=== PATIENT | male | born 1970 | race Caucasian/White ===

== ENCOUNTER 2016-05-06 08:09 | Day surgery (SDC) | payer OTHER ==
[2016-05-03 11:05] LABS: BASOPHILS 0.6 %; BASOPHILS ABSOLUTE 0.04 10/3/uL (0.0-0.16); EOSINOPHILS 2.5 %; EOSINOPHILS ABSOLUTE 0.16 10/3/uL (0.0-0.53); HEMATOCRIT 42.6 % (40.0-51.0); IMMATURE GRANULOCYTES 0.5 %; IMMATURE GRANULOCYTES ABSOLUTE 0.03 10/3/uL (0.0-0.11); LYMPHOCYTES 34.6 %; LYMPHOCYTES ABSOLUTE 2.18 10/3/uL (0.67-4.30); MANUAL DIFF NO %; MEAN CORPUS HGB CONC 32.9 g/dL (32.0-36.0); MEAN CORPUSCULAR HEMOGLOB 30.2 pg (26.0-34.0); MEAN PLATELET VOLUME 11.3 fL (9.2-13.0); MONOCYTES 8.4 %; MONOCYTES ABSOLUTE 0.53 10/3/uL (0.21-1.20); NEUTROPHILS 53.4 %; NEUTROPHILS ABSOLUTE 3.36 10/3/uL (2.02-8.40); PLATELET COUNT 189 10/3/uL (150-400); RBC DISTRIBUTION WIDTH 12.9 % (12.0-16.0); RED CELL COUNT 4.63 10/6/uL (4.7-6.1); WHITE BLOOD CELLS 6.3 10/3/uL (4.5-10.5)
[2016-05-03 11:19] LABS: A/G RATIO 1.1 (0.7-1.9); ALBUMIN 3.6 G/DL (3.5-5.0); ALKALINE PHOSPHATASE 70 U/L (45-117); BUN (BLOOD UREA NITROGEN) 13 MG/DL (6-23); CALCIUM, SERUM 8.7 MG/DL (8.5-10.4); CHLORIDE, SERUM 103 MMOL/L (96-112); CO2 (CARBON DIOXIDE) 31 MMOL/L (24-34); CREATININE 1.47 MG/DL (0.70-1.30); GFR AFRICAN AMERICAN 64 ML/MIN (>=60); GFR NON AFRICAN AMERICAN 56 ML/MIN (>=60); GLOBULIN 3.2 G/DL (2.5-4.1); GLUCOSE, SERUM 96 MG/DL (60-99); POTASSIUM, SERUM 4.4 MMOL/L (3.5-5.3); SGOT(AST) 12 U/L (5-40); SGPT(ALT) 33 U/L (5-65); SODIUM, SERUM 141 MMOL/L (135-148); TOTAL BILIRUBIN 0.7 MG/DL (0-1.2); TOTAL PROTEIN 6.8 G/DL (6.0-8.5)
--- NOTE | ~2016-05-06 | PREOPHP ---
PreOp History and Physical [address] [address] NAME: LULA GALAN : 66 STATUS : REG [facility]#: [id number] AGE: 46 ADM/REG DATE : 05/06/16 MR#: [id number] REPORT SERV DATE: 05/06/16 DICTATED BY: AFSHIN SOTELO III DATE: 03/29/16 REPORT STATUS : Draft TRANSCRIBED BY: MODNam DATE: 03/29/16 HISTORY OF PRESENT ILLNESS: This 46-year-old male comes to the operating room for open repair of a symptomatic right inguinal hernia. The patient has a large right inguinal hernia which has been present for several years. The hernia is becoming larger with time and symptomatic in terms of local pain and discomfort. The patient has had no nausea, vomiting, or obstructive symptoms. He comes to the operating room now for open repair of this hernia. PAST MEDICAL HISTORY: 1. Hypertension. 2. Hyperlipidemia. 3. Gastroesophageal reflux disease. 4. Anxiety. 5. Depression. PAST SURGICAL HISTORY: Status post tonsillectomy. FAMILY HISTORY: Positive for hypertension and diabetes. MEDICATIONS: Duloxetine; olmesartan; and esomeprazole. SOCIAL HISTORY: No history of tobacco or alcohol use. REVIEW OF SYSTEMS: The patient complains of reflux, indigestion, anxiety, and depression. A 14-point review of systems otherwise unremarkable. PHYSICAL EXAMINATION: OBJECTIVE PHYSICAL EXAM: GENERAL: This is a large obese male, in no acute distress. He is alert and oriented x3. VITAL SIGNS: Blood pressure 127/83, pulse 87, and temperature 97.9. HEENT: Unremarkable. Cranial nerves 2 through 12 were normal. LUNGS: Clear. CARDIAC: Normal. ABDOMEN: Soft and nontender. : In the right groin is a moderate size inguinal hernia. This is reducible. The left groin is normal. EXTREMITIES: Normal. ASSESSMENT: 1. A 46-year-old male with symptomatic enlarging right inguinal hernia. 2. Hypertension. 3. Obesity. 4. Hyperlipidemia. 5. Gastroesophageal reflux disease. PreOp History and Physical [address] [address] NAME: LULA GALAN : 66 STATUS : REG [facility] [place] PAT#: [id number] AGE: 46 ADM/REG DATE : 05/06/16 MR#: [id number] REPORT SERV DATE: 05/06/16 DICTATED BY: AFSHIN SOTELO III DATE: 03/29/16 REPORT STATUS : Draft TRANSCRIBED BY: TRACE DATE: 03/29/16 6. Anxiety. 7. Depression. PLAN: The patient comes to the operating room now for open right inguinal hernia repair. This procedure, the risks, benefits, and alternatives, including not limited to the risk for bleeding, infection, pain, swelling, scarring, deformity of the area, seroma formation, hematoma formation, recurrence of the hernia, nerve injury, chronic paresthesia or pain in the thigh, scrotum, or groin, chronic neuralgia or neuroma, and unforeseen complications including deep venous thrombosis, pulmonary embolus, myocardial infarction, stroke, pneumonia, and , have been explained to the patient prior to surgery. The expected length of recovery has been explained. All his questions have been answered. He understands the risks and agrees to the surgery as planned. EMELY/TRACE Afshin Sotelo III, M.D. / [id number]
--- NOTE | ~2016-05-06 | OP ---
Record Of Operation [facility] [address] [place]. [address] NAME: LULA GALAN : 66 STATUS : REG [facility] [place] PAT#: [id number] AGE: 46 ADM/REG DATE : 05/06/16 MR#: [id number] REPORT SERV DATE: 05/06/16 DICTATED BY: AFSHIN SOTELO III DATE: 05/06/16 REPORT STATUS : Draft TRANSCRIBED BY: MODL DATE: 05/06/16 DATE OF PROCEDURE: 05/06/2016 PREOPERATIVE DIAGNOSIS: Symptomatic recurrent right inguinal hernia. POSTOPERATIVE DIAGNOSES: Symptomatic recurrent right inguinal hernia, direct right inguinal hernia. PROCEDURE: Open Ariane tension-free repair of the right inguinal hernia with Prolene mesh. SURGEON: Afshin Sotelo M.D. ANESTHESIA: General with intubation. COMPLICATIONS: None. ESTIMATED BLOOD LOSS: Less than 5 mL. SPECIMENS: None. DRAINS: None. LAP AND SPONGE COUNT: Correct x3. BRIEF HISTORY: This 46-year-old male presented with a symptomatic right inguinal hernia. It was felt that open right inguinal hernia repair was indicated. This procedure, the risks, benefits, and alternatives, including but not limited to the risk for bleeding, infection, pain, swelling, scarring, deformity to the area, seroma formation, hematoma formation, recurrence of the hernia, nerve injury, chronic paresthesia, or pain in the thigh, scrotum, or groin, chronic neuralgia or neuroma, and unforeseen complications including deep venous thrombosis, pulmonary embolus, myocardial infarction, stroke, pneumonia, and were explained to the patient prior to the surgery. The expected length of recovery was explained. The patient's questions were answered. He understood the risks and agreed to the surgery as planned. DESCRIPTION OF PROCEDURE: After being properly identified and after discussing the risks and benefits of surgery with him again in the preoperative area, and after identifying the hernia with his help in the preoperative area, the patient was taken to the operating room and placed in the supine position on the operating room table. General anesthesia was administered, and he was intubated without difficulty. The abdomen and groins were prepped and draped sterilely in the usual fashion. After an appropriate "time-out" per JCAHO standards, a small oblique incision was made in the right groin from the pubic tubercle medially towards the anterior and superior iliac spine laterally. The incision was continued through the subcutaneous tissue. Hemostasis was controlled with the cautery. The external oblique fascia was identified. This fascia was opened along the direction of its Record Of Operation [address] [place]. [address] NAME: LULA GALAN : 66 STATUS : REG [facility] [place] PAT#: [id number] AGE: 46 ADM/REG DATE : 05/06/16 MR#: [id number] REPORT SERV DATE: 05/06/16 DICTATED BY: AFSHIN SOTELO III DATE: 05/06/16 REPORT STATUS : Draft TRANSCRIBED BY: TRACE DATE: 05/06/16 fibers, so as to open the external inguinal ring. Using sharp dissection, the ilioinguinal and genitofemoral nerves were identified. These were carefully isolated and protected to one side. There was noted to be a large direct hernia protruding through the floor of the canal. Using sharp dissection, the spermatic cord and its contents were mobilized from the floor of the canal and a Udall drain was placed beneath it. The spermatic cord was skeletonized. There was no indirect component to the hernia. Using sharp dissection, the direct hernia was dissected free from its surrounding tissues. It was reduced back into the abdominal cavity. The fascial defect in the floor of the canal was then closed with interrupted 3-0 silk sutures which were placed between the shelving edge of the inguinal ligament laterally and the internal oblique and transversalis fascia medially. This resulted in good closure of the defect with minimal tension. A Prolene mesh was then selected and cut to the appropriate size for the floor of the canal. A slit was made in the mesh laterally to incorporate the spermatic cord. The mesh was then secured to the floor of the canal with a running 2-0 Prolene suture, which was placed between the edge of the mesh and shelving edge of the inguinal ligament laterally and the edge of the mesh and the internal oblique and transversalis fascia medially. Upon completion of this, the mesh lay nicely on the floor of the canal, it was not twisted or kinked in any way. It was not under any tension. A small finger could be placed through the internal ring so that the spermatic vessels had not been unduly tightened or narrowed. Hemostasis was assured. The external oblique fascia was closed with a running 2-0 silk suture. The subcutaneous tissue was closed with a running 3-0 chromic suture. The skin was closed with a running subcuticular 4-0 Monocryl stitch. Incision was injected with 0.5% Marcaine. Dressings were applied. Anesthesia was reversed. The patient was taken to the recovery room in stable condition. He tolerated the procedure well. His family was informed the results of the surgery. The patient will be discharged when stable and comfortable and able to void and ambulate. His family was advised that he should keep his wound clean and dry for 48 hours that he should not drive for three to four days after surgery while using narcotics that he should resume his usual medications and he should not perform any heavy lifting for four to five weeks. He was asked to return in two weeks for followup or sooner if any fever, chills, wound drainage, or other problems prior to that time. He was given a prescription for Percocet 7.5 one p.o. t.i.d., #12, as needed for pain, which he was advised not to use while driving. EMELY/TRACE Afshin Sotelo III, M.D. / [id number] CC: Afshin Sotelo III, M.D. Record Of Operation [address] [address] NAME: LULA GALAN : 66 STATUS : REG [facility] [place] PAT#: [id number] AGE: 46 ADM/REG DATE : 05/06/16 MR#: [id number] REPORT SERV DATE: 05/06/16 DICTATED BY: AFSHIN SOTELO III DATE: 05/06/16 REPORT STATUS : Draft TRANSCRIBED BY: TRACE DATE: 05/06/16 Jeffrey Grant M.D.
[~2016-05-06 08:09] MED LIST: BENICAR40 PO; CYMBALTA60 PO; GOODY'S EX-STR1 EAC1 PO; HYDROCHLOROT12.5 MG PO; PRILOSEC40 MG PO
== END 2016-05-06 17:37 | disposition home or self-care (01) ==
LOC: SDC 08:09
PROVIDERS: Surgery
PROC: 0YU50JZ Supplement Right Inguinal Region with Synthetic Substitute, Open Approach (ICD-10-PCS; principal; 2016-05-06 09:00)
DX: K40.90 Unilateral inguinal hernia, without obstruction or gangrene, not specified as recurrent (principal); I10 Essential (primary) hypertension; E78.5 Hyperlipidemia, unspecified; K21.9 Gastro-esophageal reflux disease without esophagitis; F32.9 Major depressive disorder, single episode, unspecified; E66.9 Obesity, unspecified; F41.9 Anxiety disorder, unspecified; Z90.89 Acquired absence of other organs; Z88.5 Allergy status to narcotic agent
CPT/HCPCS: 71020; 80053; 85025; 93005; A9270-GY; C1781; J0690; J2250; J2370; J2405; J2710; J3010